=== PATIENT | male | born 1955 | race Caucasian/White ===

== ENCOUNTER 2016-11-12 23:07 | Day surgery (SDC) | payer OTHER ==
[~2016-11-12] VITALS: Ht 172.7 cm; Wt 108.9 kg
[2016-11-13 00:04] LABS: ABSOLUTE BASOPHIL COUNT 0 /CUMM (0.0-0.2); ABSOLUTE EOSINOPHIL COUNT 0.1 /CUMM (0.0-0.7); ABSOLUTE GRANULOCYTE CT 7.9 /CUMM (1.4-6.5); ABSOLUTE LYMPH COUNT 1.5 /CUMM (1.2-3.4); ABSOLUTE MONOCYTE COUNT 0.8 /CUMM (0.10-0.60); BASOPHIL % 0.2 % (0.0-2.0); EOSINOPHIL % 0.8 % (0-5); HEMATOCRIT 41.2 % (42-52); MEAN CORPUSCULAR HGB 30.9 PG (27.0-31.0); MEAN CORPUSCULAR HGB CONC 34.3 G/DL (33.0-37.0); MEAN CORPUSCULAR VOLUME 90.1 FL (80.0-94.0); MEAN PLATELET VOLUME 8.8 FL (7.4-10.4); PLATELET COUNT 217 /CUMM (130-400); RBC DISTRIBUTION WIDTH 12.9 % (11.5-14.5); RED BLOOD CELL CT 4.57 /CUMM (4.70-6.10); WHITE BLOOD CELL COUNT 10.4 /CUMM (4.8-10.8)
--- NOTE | 2016-11-13 00:29 | ED GI/GU/ABDOMINAL COMPLAINT ---
History of Present Illness General Chief Complaint: Abdominal Pain/Flank Pain Stated Complaint: "LOWER LT ABD PAIN [id number]" Source: patient Exam Limitations: no limitations Vital Signs & Intake/Output Vital Signs & Intake/Output Vital Signs Date Time Temp Pulse Resp B/P Pulse O2 O2 Flow FiO2 Ox Delivery Rate 11/13 0211 98 Room Air 11/13 0119 97.2 61 18 155/87 97 Room Air 11/13 0000 97.3 80 18 156/93 96 Room Air Allergies Coded Allergies: NSAIDS (Non-Steroidal Anti-Inflamma (Severe, HIVES 11/13/16) aspirin (Intermediate, HIVES 11/13/16) Triage Note: PT FROM HOME C/O LEFT SIDED ABD PAIN THAT DOES NOT RADIATE TO BACK OR CHEST. PT STATES THAT ON THURSDAY HE WAS SNOW BLOWING AND TWISTED THE WRONG WAY "I THOUGHT I PULLED A MUSCLE, BUT THEN THE PAIN CAME BACK A DULL ACHY PAIN FOR THE PAST 24 HRS." Triage Nurses Notes Reviewed? yes Onset: Abrupt Duration: day(s):, continues in ED Timing: recent history Quality/Severity: cramping, throbbing Location: left lower quadrant Radiation: no radiation Activities at Onset: physical activity Prior Abdominal Problems: none Modifying Factors: Worsens With: movement, palpation. Associated Symptoms: left lower quadrant throbbing abdominal pain HPI: 61-year-old gentleman in prior good health presents with left lower quadrant abdominal pain for more than 24 hours. He states that 7 days ago he felt like he pulled a muscle in his left lower quadrant of his abdomen while snowblowing. That pain improved. He then developed pain in the left lower quadrant yesterday evening. He has no urinary symptoms nausea vomiting diarrhea. He has no chest pain or shortness of breath. He states, "the pain is just there, like a throbbing pain." He notes that he had a colonoscopy last fall that was benign. Past History Travel History Traveled to [place] past 21 day No Medical History Any Pertinent Medical History? see below for history Cardiovascular: hypertension, hyperlipidemia Surgical History Surgical History: none Psychosocial History What is your primary language Malaysian Tobacco Use: Never used ETOH Use: occasional use Illicit Drug Use: denies illicit drug use Family History Hx Contributory? No Review of Systems Review of Systems Constitutional: Reports: no symptoms. EENTM: Reports: no symptoms. Respiratory: Reports: no symptoms. Cardiovascular: Reports: no symptoms. GI: Reports: no symptoms. Genitourinary: Reports: no symptoms. Musculoskeletal: Reports: no symptoms. Skin: Reports: no symptoms. Neurological/Psychological: Reports: no symptoms. Hematologic/Endocrine: Reports: no symptoms. Immunologic/Allergic: Reports: no symptoms. All Other Systems: Reviewed and Negative Physical Exam Physical Exam General Appearance: well developed/nourished, mild distress Head: atraumatic, normal appearance Eyes: Bilateral: normal appearance. Ears, Nose, Throat, Mouth: hearing grossly normal Neck: normal inspection, supple, full range of motion, normal alignment Respiratory: normal breath sounds, chest non-tender, no respiratory distress, quiet respiration, lungs clear Cardiovascular: regular rate/rhythm Gastrointestinal: normal bowel sounds, soft, minimal tenderness in left lower quadrant, no rebound no guarding Back: normal inspection Extremities: normal range of motion Neurologic/Psych: no motor/sensory deficits, awake, alert, oriented x 3 Skin: intact, normal color, warm/dry Core Measures ACS in differential dx? No Severe Sepsis Present: No Septic Shock Present: No Progress Differential Diagnosis: UTI versus diverticulitis versus perforation versus kidney stone versus other Plan of Care: Orders Procedure Date/time Status Nothing by Mouth 11/13 B Active Saline Lock 11/13 414 Active Misc Message 11/13 414 Active ED Holding Orders 11/13 414 Active Vital Signs 11/13 414 Active Code Status 11/13 414 Active EKG 11/[address] in observation 11/13 0349 Active URINALYSIS 11/12 2323 Complete LIPASE 11/12 2323 Complete HEPATIC FUNCTION PANEL 11/12 2323 Complete CBC WITHOUT DIFFERENTIAL 11/12 2323 Complete BASIC METABOLIC PANEL 11/12 232 Complete AMYLASE 11/12 232 Complete Current Medications Sig/Jared Start time Last Medication Dose Stop Time Status Admin Sodium Chloride 1,000 ML BOLUS ONE 11/13 0400 AC (Normal Saline 0.9%) 11/13 0459 Laboratory Tests 11/12/16 2345: Anion Gap 13, Estimated GFR 32 L, BUN/Creatinine Ratio 18.1, Glucose 156 H, Calcium 10.0, Total Bilirubin 0.6, Direct Bilirubin 0.4, AST 24, ALT 42, Alkaline Phosphatase 90, Total Protein 7.3, Albumin 4.3, Amylase 50, Lipase 81, CBC w Diff NO MAN DIFF REQ, RBC 4.57 L, MCV 90.1, MCH 30.9, RDW 12.9, MPV 8.8, Gran % 76.0 H, Lymphocytes % 14.9 L, Monocytes % 8.1, Eosinophils % 0.8, Basophils % 0.2, Absolute Granulocytes 7.9 H, Absolute Lymphocytes 1.5, Absolute Monocytes 0.8 H, Absolute Eosinophils 0.1, Absolute Basophils 0, PUBS MCHC 34.3, Urine Color YEL, Urine Clarity CLEAR, Urine pH 6.0, Ur Specific [place] 1.020, Urine Protein NEG, Urine Ketones NEG, Urine Nitrite NEG, Urine Bilirubin NEG, Urine Urobilinogen 0.2, Ur Leukocyte Esterase NEG, Ur Microscopic EXAM NOT REQUIRED, Urine Hemoglobin NEG, Urine Glucose NEG Diagnostic Imaging: Viewed by Me: CT Scan. Discussed w/RAD: CT Scan. Radiology Impression: ct scan.... left sided mid 10mm stone... full report below. Initial ED EKG: normal axis, normal intervals, normal p-waves, normal QRS complex, normal sinus rhythm Comments: PATIENT: ARRON MCWILLIAMS PRESENT AGE: 61 PATIENT ACCOUNT NO: [id number] : 53 LOCATION: [facility] ORDERING PHYSICIAN: JOSE JUAN MCFARLAND MD SERVICE DATE: 11/13/16 EXAM TYPE: CAT - CT ABD & PELVIS W/O IV CONTRAS EXAMINATION: CT ABDOMEN AND PELVIS WITHOUT CONTRAST CLINICAL INFORMATION: Left lower quadrant abdominal pain COMPARISON: None TECHNIQUE: Multidetector volumetric imaging was performed from the superior aspect of the liver through the pubic symphysis. Sagittal and coronal reformatted images were obtained on the technologist's workstation. DLP: 1298.69 mGy-cm FINDINGS: LUNG BASES: The visualized lung bases are unremarkable. Coronary artery calcifications are present. LIVER, GALLBLADDER, AND BILIARY TREE: The liver is normal in size, shape, and attenuation. No focal hepatic lesion or biliary ductal dilatation is present. The gallbladder is unremarkable with no evidence of radiopaque gallstones, gallbladder wall thickening, or obvious pericholecystic inflammatory changes. PANCREAS: Unremarkable. SPLEEN: Unremarkable. ADRENAL GLANDS: Unremarkable. KIDNEYS AND URETERS: There is a mid left ureteral calculus measuring approximately 10 mm in length, with mild hydronephrosis and associated perinephric stranding. A few additional scattered calcifications are present in the left kidney measuring up to 6 mm. No right-sided hydronephrosis or calculi. BLADDER: Unremarkable. GASTROINTESTINAL TRACT: Patient is status post right hemicolectomy, with ileocolonic anastomosis in the right upper quadrant. No evidence of bowel obstruction. No abnormal bowel wall thickening is seen. ABDOMINAL WALL: Bilateral fat-containing inguinal hernias are noted. LYMPH NODES: Normal. VASCULAR: Scattered atherosclerotic calcifications are present. PELVIC VISCERA: Unremarkable. OSSEOUS STRUCTURES: Degenerative changes are noted in the spine. IMPRESSION: 1. Mid left ureteral calculus measuring up to 10 mm in length, with mild hydronephrosis. 2. Few additional scattered left renal calculi. 3. Bilateral fat-containing inguinal hernias. 4. Coronary artery calcifications. Correlation with cardiac risk factors is recommended. DICTATED BY: DARRELL DUMONT MD DATE/TIME DICTATED:11/13/16217 GOLF TECHNICIAN:RAFAELA DATE/TIME TRANSCRIBED:11/13/16217 CONFIDENTIAL, DO NOT COPY WITHOUT APPROPRIATE AUTHORIZATION. <Electronically signed in Other Vendor System> SIGNED BY: DARRELL DUMONT MD 11/13/16228 Departure Departure Disposition: HOME OR SELF CARE Condition: Stable Clinical Impression Primary Impression: Abdominal pain Secondary Impressions: Renal insufficiency Referrals: WAYLON ARNOLD,ALLI Camp (PCP/Family) Departure Forms: Customer Survey General Discharge Information OR/GI Note Spoke With: RACHEL MARS MD ED Treatment Decision: ARRON MCWILLIAMS requires urgent operative management or an emergent procedure that cannot be performed in the Emergency Room setting. pt to OR for placement of stent due to mid ureteral left sided 10mm kidney stone.
--- NOTE | 2016-11-13 02:29 | CT SCAN REPORT ---
EXAMINATION: CT ABDOMEN AND PELVIS WITHOUT CONTRAST CLINICAL INFORMATION: Left lower quadrant abdominal pain COMPARISON: None TECHNIQUE: Multidetector volumetric imaging was performed from the superior aspect of the liver through the pubic symphysis. Sagittal and coronal reformatted images were obtained on the technologist's workstation. DLP: 1298.69 mGy-cm FINDINGS: LUNG BASES: The visualized lung bases are unremarkable. Coronary artery calcifications are present. LIVER, GALLBLADDER, AND BILIARY TREE: The liver is normal in size, shape, and attenuation. No focal hepatic lesion or biliary ductal dilatation is present. The gallbladder is unremarkable with no evidence of radiopaque gallstones, gallbladder wall thickening, or obvious pericholecystic inflammatory changes. PANCREAS: Unremarkable. SPLEEN: Unremarkable. ADRENAL GLANDS: Unremarkable. KIDNEYS AND URETERS: There is a mid left ureteral calculus measuring approximately 10 mm in length, with mild hydronephrosis and associated perinephric stranding. A few additional scattered calcifications are present in the left kidney measuring up to 6 mm. No right-sided hydronephrosis or calculi. BLADDER: Unremarkable. GASTROINTESTINAL TRACT: Patient is status post right hemicolectomy, with ileocolonic anastomosis in the right upper quadrant. No evidence of bowel obstruction. No abnormal bowel wall thickening is seen. ABDOMINAL WALL: Bilateral fat-containing inguinal hernias are noted. LYMPH NODES: Normal. VASCULAR: Scattered atherosclerotic calcifications are present. PELVIC VISCERA: Unremarkable. OSSEOUS STRUCTURES: Degenerative changes are noted in the spine. IMPRESSION: 1. Mid left ureteral calculus measuring up to 10 mm in length, with mild hydronephrosis. 2. Few additional scattered left renal calculi. 3. Bilateral fat-containing inguinal hernias. 4. Coronary artery calcifications. Correlation with cardiac risk factors is recommended.
[2016-11-13] MEDS ORDERED: LOSARTAN-HCTZ1 EAC2 PO (05:01)
[2016-11-13] MEDS ORDERED: ATORVASTATIN CA20 M1 PO (05:01)
[2016-11-13 06:27] VITALS: BP 157/81
--- NOTE | 2016-11-13 08:14 | Cons- Urology ---
General Information and HPI Consulting Request Date of Consult: 11/13/16 Requested By: Princess IYER GREGORY-E.D. Reason for Consult: ARF (CREAT 2.1), OBSTRUCTED LEFT KIDNEY DUE TO LARGE 10MM URETER STONE. Source of Information: patient, old records Exam Limitations: no limitations History of Present Illness: This is a 61-year-old gentleman with no significant past medical history with 2 days of left renal colic. The left flank pain worsened overnight associated with nausea and was then brought to the emergency room for evaluation. CAT scan reveals a large left mid ureter stone with proximal hydronephrosis, perinephric stranding, and a creatinine consistent with acute renal failure. These findings , along with the CAT scan images were discussed with the patient. Risks, benefits, procedure, and alternatives were discussed with the patient for placement of stent immediately. The patient agrees with this plan, along with left ureter ESWL, and subsequent left renal ESWL in a few weeks' time. Allergies/Medications Allergies: Coded Allergies: NSAIDS (Non-Steroidal Anti-Inflamma (Severe, HIVES 11/13/16) aspirin (Intermediate, HIVES 11/13/16) Home Med List: Atorvastatin Calcium 20 MG TABLET 1 TAB PO DAILY HYPERLIPIDEMIA (Reported) Losartan/Hydrochlorothiazide (Losartan-Hctz 100-25 MG Tab) 100 MG-25 MG TABLET 1 TAB PO DAILY HYPERLIPIDEMA (Reported) Current Medications: Current Medications Sig/Jared Start time Last Medication Dose Route Stop Time Status Admin Acetaminophen 975 MG ONCE ONE 11/13 0230 DC 11/13 PO 11/13 0231 0218 Acetaminophen 0 .STK-MED ONE 11/13 0218 DC PO Ketorolac 0 .STK-MED ONE 11/13 0208 DC Tromethamine IM Sodium Chloride 1,000 ML BOLUS ONE 11/13 0400 DC 11/13 IV 11/13 5989 0456 Past History Medical History Blood Transfusion Hx: No Neurological: NONE EENT: NONE Cardiovascular: hypertension, hyperlipidemia Respiratory: NONE Renal: NONE Surgical History Pertinent Surgical History: none, 1 Family History Relations & Conditions If Any: Family history was reviewed; no changes noted. Psychosocial History Where Do You Live? Home Who Do You Live With? spouse Services at Home: None Primary Language: Greenlandic ETOH Use: occasional use Illicit Drug Use: denies illicit drug use Employment History Retired? unknown Review of Systems Review of Systems Constitutional: Denies: no symptoms. EENTM: Denies: no symptoms. Cardiovascular: Denies: no symptoms. Respiratory: Denies: no symptoms. GI: Reports: abdominal pain, bloating, distention. Genitourinary: Denies: no symptoms. Musculoskeletal: Denies: no symptoms. Exam & Diagnostic Data Vital Signs and I&O Vital Signs Date Time Temp Pulse Resp B/P Pulse O2 O2 Flow FiO2 Ox Delivery Rate 11/13 0627 96.8 67 18 157/81 98 Room Air 11/13 0456 97.5 62 18 142/75 99 Room Air 11/13 0211 98 Room Air 11/13 0119 97.2 61 18 155/87 97 Room Air 11/13 0000 97.3 80 18 156/93 96 Room Air Intake & Output 11/13 1600 11/13 0800 11/13 0000 11/12 1600 11/12 0800 11/12 0000 Intake Total Output Total Balance Patient 240 lb Weight Physical Exam General Appearance: well developed/nourished, obese Head: atraumatic, normal appearance Eyes: Bilateral: normal appearance. Ears, Nose, Throat: normal pharynx Respiratory: normal breath sounds Cardiovascular: regular rate/rhythm Back: CVA tenderness (L) Extremities: normal inspection Skin: intact, normal color, warm/dry Reproductive: Normal male genitalia Last 24 Hours of Labs: Laboratory Tests 11/12 2345 Chemistry Sodium (137 - 145 mmol/L) 137 Potassium (3.5 - 5.1 mmol/L) 4.0 Chloride (98 - 107 mmol/L) 104 Carbon Dioxide (22 - 30 mmol/L) 20 L Anion Gap (5 - 16) 13 BUN (9 - 20 mg/dL) 38 H Creatinine (0.7 - 1.2 mg/dL) 2.1 H Estimated GFR (>60 ml/min) 32 L BUN/Creatinine Ratio (7 - 25 %) 18.1 Glucose (65 - 99 mg/dL) 156 H Calcium (8.4 - 10.2 mg/dL) 10.0 Total Bilirubin (0.2 - 1.3 mg/dL) 0.6 Direct Bilirubin (< 0.4 mg/dL) 0.4 AST (17 - 59 U/L) 24 ALT (21 - 72 U/L) 42 Alkaline Phosphatase (< 127 U/L) 90 Total Protein (6.3 - 8.2 g/dL) 7.3 Albumin (3.5 - 5.0 g/dL) 4.3 Amylase (30 - 110 U/L) 50 Lipase (23 - 300 U/L) 81 Hematology CBC w Diff NO MAN DIFF REQ WBC (4.8 - 10.8 /CUMM) 10.4 RBC (4.70 - 6.10 /CUMM) 4.57 L Hgb (14.0 - 18.0 G/DL) 14.1 Hct (42 - 52 %) 41.2 L MCV (80.0 - 94.0 FL) 90.1 MCH (27.0 - 31.0 PG) 30.9 RDW (11.5 - 14.5 %) 12.9 Plt Count (130 - 400 /CUMM) 217 MPV (7.4 - 10.4 FL) 8.8 Gran % (42.2 - 75.2 %) 76.0 H Lymphocytes % (20.5 - 51.1 %) 14.9 L Monocytes % (1.7 - 9.3 %) 8.1 Eosinophils % (0 - 5 %) 0.8 Basophils % (0.0 - 2.0 %) 0.2 Absolute Granulocytes (1.4 - 6.5 /CUMM) 7.9 H Absolute Lymphocytes (1.2 - 3.4 /CUMM) 1.5 Absolute Monocytes (0.10 - 0.60 /CUMM) 0.8 H Absolute Eosinophils (0.0 - 0.7 /CUMM) 0.1 Absolute Basophils (0.0 - 0.2 /CUMM) 0 PUBS MCHC (33.0 - 37.0 G/DL) 34.3 Urines Urine Color (YEL,AMB,STR) YEL Urine Clarity (CLEAR) CLEAR Urine pH (5.0 - 8.0) 6.0 Ur Specific [place] (1.001 - 1.035) 1.020 Urine Protein (NEG,<30 MG/DL) NEG Urine Ketones (NEG) NEG Urine Nitrite (NEG) NEG Urine Bilirubin (NEG) NEG Urine Urobilinogen (0.1 - 1.0 EU/dl) 0.2 Ur Leukocyte Esterase (NEG) NEG Ur Microscopic EXAM NOT REQUIRED Urine Hemoglobin (NEG) NEG Urine Glucose (N MG/DL) NEG Imaging Results: PATIENT: ARRON MCWILLIAMS PRESENT AGE: 61 PATIENT ACCOUNT NO: [id number] : 53 LOCATION: [facility] ORDERING PHYSICIAN: JOSE JUAN MCFARLAND MD SERVICE DATE: 11/13/16 EXAM TYPE: CAT - CT ABD & PELVIS W/O IV CONTRAS EXAMINATION: CT ABDOMEN AND PELVIS WITHOUT CONTRAST CLINICAL INFORMATION: Left lower quadrant abdominal pain COMPARISON: None TECHNIQUE: Multidetector volumetric imaging was performed from the superior aspect of the liver through the pubic symphysis. Sagittal and coronal reformatted images were obtained on the technologist's workstation. DLP: 1298.69 mGy-cm FINDINGS: LUNG BASES: The visualized lung bases are unremarkable. Coronary artery calcifications are present. LIVER, GALLBLADDER, AND BILIARY TREE: The liver is normal in size, shape, and attenuation. No focal hepatic lesion or biliary ductal dilatation is present. The gallbladder is unremarkable with no evidence of radiopaque gallstones, gallbladder wall thickening, or obvious pericholecystic inflammatory changes. PANCREAS: Unremarkable. SPLEEN: Unremarkable. ADRENAL GLANDS: Unremarkable. KIDNEYS AND URETERS: There is a mid left ureteral calculus measuring approximately 10 mm in length, with mild hydronephrosis and associated perinephric stranding. A few additional scattered calcifications are present in the left kidney measuring up to 6 mm. No right-sided hydronephrosis or calculi. BLADDER: Unremarkable. GASTROINTESTINAL TRACT: Patient is status post right hemicolectomy, with ileocolonic anastomosis in the right upper quadrant. No evidence of bowel obstruction. No abnormal bowel wall thickening is seen. ABDOMINAL WALL: Bilateral fat-containing inguinal hernias are noted. LYMPH NODES: Normal. VASCULAR: Scattered atherosclerotic calcifications are present. PELVIC VISCERA: Unremarkable. OSSEOUS STRUCTURES: Degenerative changes are noted in the spine. IMPRESSION: 1. Mid left ureteral calculus measuring up to 10 mm in length, with mild hydronephrosis. 2. Few additional scattered left renal calculi. 3. Bilateral fat-containing inguinal hernias. 4. Coronary artery calcifications. Correlation with cardiac risk factors is recommended. Assessment/Plan Assessment/Plan left obst. ureter with arf. left stent now. Copies To: RACHEL MARS MD Acknowledgment - Thank you for your consult request. Attending MD Review Statement Attending Statement Attending MD Statement: examined this patient, discuss w/resident/PA/CEMETERY MANAGER Attending Assessment/Plan: left stent now.
--- NOTE | 2016-11-13 10:57 | RADIOLOGY REPORT ---
EXAMINATION: XR ABDOMEN CLINICAL INDICATION: Cystoscopy/retrograde left stent placement. COMPARISON: CT scan of the abdomen and pelvis 11/13/2016. TECHNIQUE: 12 spot images were obtained in the operating room under the direction of Robinson Keating with images submitted for review. FINDINGS: Multiple sequential intraoperative spot images demonstrate catheter placement with limited retrograde urogram followed by a wire and ureteral stent placement. The proximal end of the ureteral stent is noted. The distal end is not imaged. The labeling of the images report left stent placement and therefore I am assuming this is of the left side. IMPRESSION: Multiple spot images demonstrating limited retrograde ureterogram followed by stent placement.
--- NOTE | 2016-11-27 13:21 | Operative Report ---
See Addendum Operative/Inv Procedure Report Surgery Date: 11/27/16 Name of Procedure: cystoscopy: Left ureter stent placement. Pre-Operative Diagnosis: Left obstructed kidney Post-Operative Diagnosis: Same Estimated Blood Loss: scant Surgeon/Test Development Engineer: RACHEL MARS MD Anesthesia: laryngeal mask airway Complications: None Operative/Procedure Note Note: The patient was taken to the operating room placed on the OR table in supine position. radiologic images were reviewed pre-operatively. Timeout was performed, with the patient awake, in order to confirm the patient's identity, planned procedure, anesthesia antibiotics, as well as other pertinent sabino- operative information. After adequate anesthesia and antibiotics, the patient was then placed in lithotomy stirrups, draped and prepped in the usual surgical fashion. A 22 [place] cystoscope sheath with 30 angle lens was inserted into the bladder without significant difficulty. The bladder was noted to be free of tumor free of stone. Both ureteral orifices were in their orthotopic position with clear reflux from the right side, and no reflux on the left side despite peristalsis. An 8 [place] cone-tipped catheter was inserted into the left ureteral orifice, and gentle retrograde pyelogram, with fluoroscopy, was performed. The obstructing left ureter stone was visualized, as well as proximal hydronephrosis due to the stone. The cone-tipped catheter was removed with drainage of distal ureter contrast material. Under direct visualization, the left orifice was intubated with a 0.035 Glidewire, which advanced into the left renal pelvis, by- passing the obstructing stone, without significant difficulty. With the Glidewire in proper place, the 6 x 22cm [id number] stent was then railroaded over the Glidewire, and advanced into the left renal pelvis without difficulty. With the proximal coil visualized, by fluoroscopy, in the left renal pelvis, and the distal coil seen in the bladder, via cystoscope, the Glidewire was removed without difficulty. Proper placement of stent was confirmed both fluoroscopically, as well as cystoscopically. The bladder was drained and the cystoscope was then removed. The patient tolerated procedure well was then taken to the ICU in satisfactory condition. She will be discharged home with pain meds, abx, and instructions to make f/u appointment for further managment of stone and stent. Discharge Disposition: PACU CC: RACHEL MARS MD
== END 2016-11-13 ==
LOC: ERH 23:07 → STS 11-13 07:51 → ERH 11-13 07:51
PROVIDERS: Pediatrics
DX: N13.2 Hydronephrosis with renal and ureteral calculous obstruction (principal); N17.9 Acute kidney failure, unspecified; I10 Essential (primary) hypertension; E78.5 Hyperlipidemia, unspecified
CPT/HCPCS: 74000; 74176; 81003; 93005; 93010; C2617; J0696; J1885; J2250; J2405

== ENCOUNTER → 2016-11-18 | Day surgery (SDC) | payer OTHER ==
[~2016-11-18] MED LIST: ATORVASTATIN CA20 M1 PO; LOSARTAN-HCTZ1 EAC2 PO
--- NOTE | 2016-11-18 15:32 | Operative Report ---
Operative/Inv Procedure Report Surgery Date: 11/18/16 Name of Procedure: left ureter ESWL. Fluoroscopy. Cysto-left stent removal. Pre-Operative Diagnosis: left ureter stone and stent Post-Operative Diagnosis: same Estimated Blood Loss: scant Surgeon/Finished Goods Stock Clerk: RACHEL MARS MD Anesthesia: moderate sedation Complications: None Operative/Procedure Note Note: The patient was taken to the operating room and placed on the ESWL table in supine position. Time out was performed, with the patient awake, to confirm identity, procedure, laterality, and other pertinent sabino-operative information. After adequate anesthesia, the patient was positioned so that the left flank was placed over the ESWL table cut-out, and overlying the dome of the shockwave generator. C-arm fluroscopy, as well as renal US was used to locate the mid ureter stone alongside the ureter stent, and evaluate the left kidney. The 10 mm stone was visible on fluroloscopy at the mid -ureter. Renal US confirmed mild hydronephrosis, with one additional stone seen in the left kidney. The left ureter stone was approximate 10 mm in size, and faintly visible with fluoroscopy. Using fluoroscopy, the position of the ureter stone was optimized for ESWL, using AP, and oblique views of the stone. Subsequently, E.S.W.L. was initiated at low power levels x 200 shocks. After noting the patient's tolerance to the shockwaves, the shock wave power level was quickly maximized. At the end of the procedure, the composition of the stone had changed significantly indicating the pulverization of the ureter stone. A total of 3000 shockwaves were delivered to the stone in order to achieve adequate lithotrypsy. The patient was then frog legged, draped and prepped in the usual surgical fashion. 22 Croatian cystoscope sheath with a 30 angle lens was inserted into the urethra without difficulty. The cystoscope was advanced through the prostatic urethra and entered the bladder without difficulty. The bladder was noted to be free of tumor free of stone. The left orifice was noted to have a stent in place, which was grasped with an alligator forcep. The cystoscope along with entire stent was removed without difficulty. The patient tolerated the procedures well, was awakened, and taken to recovery in satisfactory condition via stretcher. The pt will eventually be dischared to home with pain meds, diet orders, and intructions to catch fragments with straining the urine. The patient is to have follow-up renal ultrasound and KUB (after the left renal stone is treated as well). Findings: 10 mm mid ureter stone. Discharge Disposition: Same Day Admissions CC: MADISYN ARNOLD,RACHEL
== END ==
LOC: STS 03:13
DX: N13.2 Hydronephrosis with renal and ureteral calculous obstruction (principal); E78.5 Hyperlipidemia, unspecified; I10 Essential (primary) hypertension
CPT/HCPCS: J2250

== ENCOUNTER → 2017-01-15 | Day surgery (SDC) | payer OTHER ==
[~2017-01-15] VITALS: Ht 172.7 cm; Wt 108.9 kg
--- NOTE | 2017-01-15 20:36 | Operative Report ---
Operative/Inv Procedure Report Surgery Date: 01/15/17 Name of Procedure: The patient was taken to the operating room and placed on the ESWL table in supine position. With the patient awake and participating, timeout was performed to confirm correct identity, procedure, laterality, anesthesia, and other pertinent sabino-operative information. After adequate anesthesia, the patient was positioned so that the patient's left flank was positioned over the table cut-out, overlying the dome of the treatment head. Once the patient was adequately sedated, fluoroscopy, as well as Renal ultrasound was used to locate the LEFT renal stone. Renal US confirmed the presence of the stone which measured it to be approximately 7 mm upper pole stone. The stone was faintly visible with fluoroscopy. Renal US revealed, no hydronephrosis, and no solid tumor, and presence of the stone. The position of the stone was optimized by using fluoroscopy in AP and oblique views;placing the stone within the ESWL c- arm crosshairs. Once the stone's position was optimized, the LEFT renal E.S.W.L. was initiated at low energy level. After noting the patient's tolerance to the shockwaves, the intensitiy was ramped up to maximum level. At the end of the procedure, the left renal stone had dissintegrated. Of note, a total of 2500 shockwaves were delivered to the stone. The patient was then frog legged, draped and prepped in the usual surgical fashion. A 22 [place] cystoscope sheath with 30 angle lens was inserted without difficulty. Upon entering the bladder, the bladder was noted to be free of tumor free of stone. The cystoscope was then removed. The patient tolerated the ESWL procedures well, was awakened, then taken to recovery in satisfactory condition via stretcher. The patient was dischared home with pain medications, diet orders, and intructions to catch fragments by straining the urine. The patient to to have follow-up renal ultrasound and KUB in 1 to 2 weeks, prior to follow-up visit in my office. He will then proceed with metabolic stone work-up. Of 3 stones in the midpole adjacent to one another with a total stone burden of approximately 8 mm. Pre-Operative Diagnosis: Left renal stones Post-Operative Diagnosis: Same Estimated Blood Loss: scant, none Surgeon/Plier Worker: RACHEL MARS MD Anesthesia: moderate sedation Complications: None Operative/Procedure Note Note: The patient was taken to the operating room and placed on the ESWL table in supine position. With the patient awake and participating, timeout was performed to confirm correct identity, procedure, laterality, anesthesia, and other pertinent sabino-operative information. After adequate anesthesia, the patient was positioned so that the patient's left flank was positioned over the table cut-out, overlying the dome of the treatment head. Once the patient was adequately sedated, fluoroscopy, as well as Renal ultrasound was used to locate the LEFT renal stone. Renal US confirmed the presence of the stone which measured it to be approximately 8 mm mid-pole stones. The stone was faintly visible with fluoroscopy. Renal US revealed, no hydronephrosis, and no solid tumor, and presence of the stone. The position of the stone was optimized by using fluoroscopy in AP and oblique views;placing the stone within the ESWL c- arm crosshairs. Once the stone's position was optimized, the LEFT renal E.S.W.L. was initiated at low energy level. After noting the patient's tolerance to the shockwaves, the intensitiy was ramped up to maximum level. At the end of the procedure, the left renal stones had dissintegrated. Of note, a total of 2500 shockwaves were delivered to the stones. The patient tolerated the ESWL procedures well, was awakened, then taken to recovery in satisfactory condition via stretcher. The patient was dischared home with pain medications, diet orders, and intructions to catch fragments by straining the urine. The patient to to have follow-up renal ultrasound and KUB in 1 to 2 weeks, prior to follow-up visit in my office. He will then proceed with metabolic stone work-up. Discharge Disposition: Same Day Admissions CC: MADISYN ARNOLD,RACHEL
== END ==
LOC: STS 01-13 07:00
DX: N20.0 Calculus of kidney (principal); I10 Essential (primary) hypertension; Z85.038 Personal history of other malignant neoplasm of large intestine
CPT/HCPCS: J2250